=== PATIENT | female | born 1975 | race African-American/Black ===

== ENCOUNTER 2021-11-02 14:16 | Emergency (ER) | payer OTHER ==
[~2021-11-02] VITALS: Ht 170.2 cm; Wt 108.9 kg
[2021-11-02] MEDS ORDERED: [UNRECOGNIZED DRUG - OTHER] PO (14:50)
[2021-11-02] MEDS ORDERED: KEPPRA1000 MG PO (14:50)
[2021-11-02] MEDS ORDERED: XELODA500 MG PO (14:51)
[2021-11-02] MEDS ORDERED: LAMICTAL100 M1 PO (14:52)
[2021-11-02] MEDS ORDERED: XANAX1 MG PO (14:53)
== END 2021-11-02 18:11 | disposition home or self-care (01) ==
LOC: ER 14:16
DX: S05.12XA Contusion of eyeball and orbital tissues, left eye, initial encounter (principal); V00.831A Fall from motorized mobility scooter, initial encounter; Y93.89 Activity, other specified; Y92.89 Other specified places as the place of occurrence of the external cause; Y99.9 Unspecified external cause status; Z91.018 Allergy to other foods